=== PATIENT | male | born 1965 | race Hispanic/Latino ===

== ENCOUNTER 2017-04-04 10:15 | Outpatient (CLI) | payer MEDICARE, MEDICAID ==
--- NOTE | 2017-04-04 22:10 | RAD ---
RIGHT FOOT THREE VIEWS 04/04/2017 FINDINGS: No fracture is appreciated. All bones appear intact. Hammertoe deformities are suggested. IMPRESSION: No acute findings. POS: HOME
== END 2017-04-04 10:16 | disposition home or self-care (01) ==
LOC: BURRAD 10:15
PROVIDERS: ATTEND Family Medicine
DX: M79.671 Pain in right foot (principal)

== ENCOUNTER 2017-04-04 10:30 | Outpatient (CLI) | payer MEDICARE, MEDICAID ==
[2017-04-04 11:56] LABS: #Basophils 0.1 thou/uL (0.0-0.2); #Eosinphils 0.3 thou/uL (0.0-0.7); #Lymphocytes 1.4 thou/uL (1.20-3.40); #Monocytes 0.7 thou/uL (0.11-0.59); #Neutrophils 4.9 thou/uL (1.40-6.50); %Eosinophils 4.2 % (0.0-10.0); %Lymphocytes 19.3 % (21.0-51.0); %Monocytes 9.1 % (0.0-10.0); %Neutrophils 66.4 % (42.0-75.0); Hemoglobin 16.9 g/dL (14.0-18.0); Mean Corpuscular HGB CONC 34.2 g/dL (32.0-36.0); Mean Corpuscular Hemoglobin 33.8 pg (27.0-31.0); Mean Corpuscular Volume 98.8 fl (80.0-94.0); Mean Platelet Volume 10.8 fL (7.4-10.4); Platelet Count 164 thou/uL (130-400); RBC Distribution Width 12.4 % (11.5-14.5); White Blood Cell (WBC) Count 7.4 thou/uL (4.8-10.8)
[2017-04-04 12:08] LABS: ALT (SGPT) 25 U/L (8-55); AST (SGOT) 17 U/L (5-34); Albumin 4.4 g/dL (3.5-5.0); Alkaline Phosphatase 58 U/L (40-150); Anion Gap 15 mmol/L (10-20); BUN (Urea Nitrogen) 5 mg/dL (8.4-25.7); Bilirubin, Total 0.8 mg/dL (0.2-1.2); Calc. Creatinine Clearance 0 mL/min (70-130); Calcium 9.3 mg/dL (7.8-10.44); Carbon Dioxide 28 mmol/L (22-29); Cardiac Risk 4.8 (Less than 4.5); Chloride 102 mmol/L (98-107); Cholesterol 157 mg/dl (< 200 Desired); Estimated GFR-MDRD Greater than 90; Glucose 153 mg/dL (70-105); HDL Cholesterol 33 mg/dL (>60 Neg Risk); LDL Cholesterol, Calculated 79 mg/dL; Potassium 3.9 mmol/L (3.5-5.1); Protein, Total 7.4 g/dL (6.0-8.3); Sodium 141 mmol/L (136-145); Triglycerides 224 mg/dL (Less than 150)
[2017-04-04 13:11] LABS: Hemoglobin A1c 6.8 % (4.0-6.0)
== END 2017-04-04 10:31 | disposition home or self-care (01) ==
LOC: HPCALD 10:30
PROVIDERS: ATTEND Family Medicine
DX: Z12.5 Encounter for screening for malignant neoplasm of prostate (principal); E11.9 Type 2 diabetes mellitus without complications; I10 Essential (primary) hypertension; E78.5 Hyperlipidemia, unspecified
CPT/HCPCS: 36415; 80053; 80061; 83036; 85025; G0103

== ENCOUNTER 2018-01-16 15:10 | Emergency (ER) | payer MEDICARE, MEDICAID ==
[2018-01-16 16:05] LABS: ALT (SGPT) 32 U/L (8-55); AST (SGOT) 29 U/L (5-34); Albumin 4.4 g/dL (3.5-5.0); Alkaline Phosphatase 56 U/L (40-150); Anion Gap 15 mmol/L (10-20); BUN (Urea Nitrogen) 10 mg/dL (8.4-25.7); Calc. Creatinine Clearance 0 mL/min (70-130); Calcium 9.4 mg/dL (7.8-10.44); Carbon Dioxide 30 mmol/L (22-29); Chloride 80 mmol/L (98-107); Estimated GFR-MDRD 86; Globulin 2.9 g/dL (2.4-3.5); Glucose 185 mg/dL (70-105); Protein, Total 7.3 g/dL (6.0-8.3); Sodium 122 mmol/L (136-145)
[2018-01-16 16:07] LABS: CKMB 4.4 ng/mL (0-6.6)
[2018-01-16 16:14] LABS: #Basophils 0.1 thou/uL (0.0-0.2); #Eosinphils 0.2 thou/uL (0.0-0.7); #Lymphocytes 1.6 thou/uL (1.20-3.40); #Monocytes 0.7 thou/uL (0.11-0.59); #Neutrophils 3.9 thou/uL (1.40-6.50); %Eosinophils 3.2 % (0.0-10.0); %Lymphocytes 24.7 % (21.0-51.0); %Monocytes 10.7 % (0.0-10.0); %Neutrophils 60.4 % (42.0-75.0); Hemoglobin 16.6 g/dL (14.0-18.0); Large Platelets MODERATE; MDiff Complete? YES; Mean Corpuscular HGB CONC 39.2 g/dL (32.0-36.0); Mean Corpuscular Hemoglobin 35.9 pg (27.0-31.0); Mean Corpuscular Volume 91.5 fl (80.0-94.0); Mean Platelet Volume 12.8 fL (7.4-10.4); Platelet Count 141 thou/uL (130-400); RBC Distribution Width 10.7 % (11.5-14.5); Red Blood Cell (RBC) Count 4.63 mill/uL (4.70-6.10); White Blood Cell (WBC) Count 6.5 thou/uL (4.8-10.8)
[2018-01-16 16:16] LABS: Troponin I 2.459 ng/mL (< 0.028)
[2018-01-16] MEDS ORDERED: Potassium Chloride 20 MEQ TAB ONE (16:35)
[2018-01-16] MEDS ORDERED: Potassium Chloride 20 MEQ/100 ML PREMIX BAG ONE (16:35)
== END 2018-01-16 17:44 | disposition short-term general hospital (02) ==
LOC: BURERS 15:10
DX: I47.2 Ventricular tachycardia (principal); E87.1 Hypo-osmolality and hyponatremia; E87.6 Hypokalemia; F17.210 Nicotine dependence, cigarettes, uncomplicated; E11.9 Type 2 diabetes mellitus without complications; I25.10 Atherosclerotic heart disease of native coronary artery without angina pectoris; Z79.899 Other long term (current) drug therapy; Z86.73 Personal history of transient ischemic attack (TIA), and cerebral infarction without residual deficits; Z79.84 Long term (current) use of oral hypoglycemic drugs; Z79.82 Long term (current) use of aspirin
CPT/HCPCS: 80053; 80307; 82553; 84484; 85025; 93005; 96365; J3480

== ENCOUNTER 2018-01-23 11:05 | Emergency (ER) | payer MEDICARE, MEDICAID ==
[2018-01-23] MEDS ORDERED: Ketamine 50 MG/ML VIAL ONE (11:19)
[2018-01-23 11:39] LABS: #Basophils 0.2 thou/uL (0.0-0.2); #Eosinphils 0.3 thou/uL (0.0-0.7); #Neutrophils 7.4 thou/uL (1.40-6.50); %Basophils 1.4 % (0.0-1.0); %Eosinophils 2.6 % (0.0-10.0); %Lymphocytes 18.5 % (21.0-51.0); %Monocytes 9.2 % (0.0-10.0); %Neutrophils 68.4 % (42.0-75.0); Large Platelets SLIGHT; MDiff Complete? YES; Mean Corpuscular HGB CONC 38.5 g/dL (32.0-36.0); Mean Corpuscular Hemoglobin 35.6 pg (27.0-31.0); Mean Corpuscular Volume 92.4 fl (80.0-94.0); Mean Platelet Volume 15.5 fL (7.4-10.4); Platelet Count 202 thou/uL (130-400); RBC Distribution Width 10.9 % (11.5-14.5); Red Blood Cell (RBC) Count 4.78 mill/uL (4.70-6.10); White Blood Cell (WBC) Count 10.9 thou/uL (4.8-10.8)
[2018-01-23 11:41] LABS: PTT 31.9 SEC (22.9-36.1); Prothrombin Time 13.5 SEC (12.0-14.7)
[2018-01-23 11:51] LABS: ALT (SGPT) 111 U/L (8-55); AST (SGOT) 70 U/L (5-34); Albumin 4.3 g/dL (3.5-5.0); Alkaline Phosphatase 61 U/L (40-150); Anion Gap 17 mmol/L (10-20); BUN (Urea Nitrogen) 16 mg/dL (8.4-25.7); Bilirubin, Total 1.3 mg/dL (0.2-1.2); Calc. Creatinine Clearance 0 mL/min (70-130); Calcium 9.5 mg/dL (7.8-10.44); Carbon Dioxide 32 mmol/L (22-29); Chloride 82 mmol/L (98-107); Estimated GFR-MDRD 65; Globulin 3.1 g/dL (2.4-3.5); Glucose 219 mg/dL (70-105); Potassium 3.1 mmol/L (3.5-5.1); Protein, Total 7.4 g/dL (6.0-8.3); Sodium 128 mmol/L (136-145)
[2018-01-23 11:52] LABS: Troponin I 0.048 ng/mL (< 0.028)
[2018-01-23] MEDS ORDERED: Potassium Chloride 20 MEQ TAB ONE (11:57)
[2018-01-23] MEDS ORDERED: Potassium Chloride 20 MEQ/100 ML PREMIX BAG ONE (11:57)
--- NOTE | 2018-01-23 17:30 | RAD ---
PORTABLE CHEST: 01/23/18 Comparison is made with an 06/25/13 study. Mild cardiomegaly is about the same as before. The lungs are fully inflated and clear. There is no va scular congestion or edema. Difference in opacification between lungs is felt to be due to the patien t being turned. An AICD remains in place. IMPRESSION: Mild cardiomegaly but no acute findings. POS: HOME
--- NOTE | 2018-01-23 17:35 | CT ---
CT OF THE BRAIN WITHOUT CONTRAST: 01/23/18 Comparison is made with the prior CT dated 07/24/16. A large old right MCA stroke is noted. There is extensive encephalomalacia from it. There were no fin dings strongly suggestive of acute stroke. There is no sign of mass or edema. No intracranial bleedin g or extra-axial hematoma was seen. The calvarium appears intact. There is some mild mucosal thickeni ng in some of the ethmoid air cells bilaterally. The sphenoid sinus and mastoid air cells are clear. IMPRESSION: Old right MCA stroke but no acute intracranial finding. POS: HOME
== END 2018-01-23 14:29 | disposition short-term general hospital (02) ==
LOC: BURERS 11:05
DX: S01.21XA Laceration without foreign body of nose, initial encounter (principal); I47.2 Ventricular tachycardia; I25.10 Atherosclerotic heart disease of native coronary artery without angina pectoris; E11.9 Type 2 diabetes mellitus without complications; I10 Essential (primary) hypertension; F17.210 Nicotine dependence, cigarettes, uncomplicated; Z79.899 Other long term (current) drug therapy; Z86.73 Personal history of transient ischemic attack (TIA), and cerebral infarction without residual deficits; Z79.84 Long term (current) use of oral hypoglycemic drugs; Z79.82 Long term (current) use of aspirin; W22.8XXA Striking against or struck by other objects, initial encounter
CPT/HCPCS: 12011; 36415; 70450; 71045; 80053; 82553; 83605; 83735; 84484; 85025; 85610; 85730; 93005; 96361; 96365; 96366; 96375; J3480

== ENCOUNTER 2019-04-09 19:24 | Emergency (ER) | payer MEDICARE, OTHER ==
[2019-04-09] MEDS ORDERED: Fentanyl 100 MCG/2 ML VIAL ONE (19:45)
[2019-04-09] MEDS ORDERED: Midazolam HCl 2 mg/2 ml Vial ONE ×2 (19:46→19:47)
[2019-04-09 20:15] LABS: ALT (SGPT) 106 U/L (8-55); AST (SGOT) 83 U/L (5-34); Albumin 3.8 g/dL (3.5-5.0); Alkaline Phosphatase 78 U/L (40-150); Anion Gap 16 mmol/L (10-20); BUN (Urea Nitrogen) 21 mg/dL (8.4-25.7); Bilirubin, Total 1.1 mg/dL (0.2-1.2); Calc. Creatinine Clearance 0 mL/min (70-130); Calcium 9.4 mg/dL (7.8-10.44); Carbon Dioxide 21 mmol/L (22-29); Chloride 103 mmol/L (98-107); Estimated GFR-MDRD 42; Globulin 2.7 g/dL (2.4-3.5); Glucose 167 mg/dL (70-105); Potassium 4.7 mmol/L (3.5-5.1); Protein, Total 6.5 g/dL (6.0-8.3); Sodium 135 mmol/L (136-145)
[2019-04-09 20:20] LABS: Hemoglobin 13.4 g/dL (14.0-18.0); Mean Corpuscular HGB CONC 32.7 g/dL (32.0-36.0); Mean Corpuscular Hemoglobin 32.6 pg (27.0-31.0); Mean Corpuscular Volume 99.8 fL (78.0-98.0); Mean Platelet Volume 12.2 fL (7.4-10.4); Platelet Count 115 thou/uL (130-400); RBC Distribution Width 13.1 % (11.5-14.5); Red Blood Cell (RBC) Count 4.12 mill/uL (4.70-6.10); White Blood Cell (WBC) Count 5.6 thou/uL (4.8-10.8)
[2019-04-09 20:24] LABS: #Basophils 0.1 thou/uL (0.0-0.2); #Eosinphils 0.1 thou/uL (0.0-0.7); #Monocytes 0.5 thou/uL (0.11-0.59); %Basophils 1.7 % (0.0-1.0); %Eosinophils 1.4 % (0.0-10.0); %Lymphocytes 34.9 % (21.0-51.0); %Monocytes 8.6 % (0.0-10.0); %Neutrophils 53.5 % (42.0-75.0); Large Platelets SLIGHT; MDiff Complete? YES
[2019-04-09 20:42] LABS: D-Dimer Test 1.41 *mcg/mL (0.27-0.43); INR-International Normal Ratio 1.3; PTT 39.5 SEC (22.9-36.1); Prothrombin Time 16.2 SEC (12.0-14.7)
--- NOTE | 2019-04-09 20:52 | RAD ---
PORTABLE CHEST: 04/09/19 HISTORY: Tachycardia. COMPARISON: 01/23/18. Cardiomegaly. Mild vascular engorgement. No focal infiltrate. AICD leads unchanged. IMPRESSION: Cardiomegaly with mild vascular engorgement. POS: [facility]
== END 2019-04-09 21:42 | disposition home or self-care (01) ==
LOC: BURERS 19:24
DX: I48.92 Unspecified atrial flutter (principal); E11.9 Type 2 diabetes mellitus without complications; I10 Essential (primary) hypertension; F17.210 Nicotine dependence, cigarettes, uncomplicated; Z86.73 Personal history of transient ischemic attack (TIA), and cerebral infarction without residual deficits; Z79.899 Other long term (current) drug therapy; Z79.84 Long term (current) use of oral hypoglycemic drugs; Z79.82 Long term (current) use of aspirin
CPT/HCPCS: 36416; 71045; 80053; 83605; 84443; 84484; 85025; 85379; 85610; 85730; 87040; 93005; 94760; 96361; 96374; 96375; 36415-59; J2250; J3010